=== PATIENT | female | born 1965 | race Caucasian/White ===

== ENCOUNTER 2016-06-03 08:46 | Emergency (ER) | payer MEDICAID ==
[2016-06-03] MEDS ORDERED: KETOROLAC 60 MG/2 ML VIAL IM ONE (09:18)
[2016-06-03] MEDS ORDERED: METHYLPRED SOD SUCC 125 MG/2 ML VIAL ONE (09:18)
== END 2016-06-03 11:16 | disposition home or self-care (01) ==
LOC: ER 08:46
DX: S39.012A Strain of muscle, fascia and tendon of lower back, initial encounter (principal); M51.36 Other intervertebral disc degeneration, lumbar region; X50.0XXA Overexertion from strenuous movement or load, initial encounter
CPT/HCPCS: 72100; 81003; 96372